=== PATIENT | male | born 1950 | race Caucasian/White ===

== ENCOUNTER → 2021-08-17 13:27 | Outpatient (BNVA) | payer OTHER, SELFPAY | PROVIDERS: Family Provider Internal Medicine; PCP Internal Medicine; Referring Provider Thoracic Surgery (Cardiothoracic Vascular Surgery); Visit Provider Orthopaedic Surgery | DX: M54.9 Dorsalgia, unspecified (principal); M48.062 Spinal stenosis, lumbar region with neurogenic claudication | CPT/HCPCS: 72110 ==

== ENCOUNTER → 2021-08-23 08:18 | Outpatient (BNVA) | payer OTHER, SELFPAY | PROVIDERS: Family Provider Internal Medicine; PCP Internal Medicine; Visit Provider Orthopaedic Surgery | DX: Z01.812 Encounter for preprocedural laboratory examination (principal); Z20.822 Contact with and (suspected) exposure to COVID-19 | CPT/HCPCS: 87635 ==

== ENCOUNTER → 2021-08-24 11:25 | Day surgery (SDC) | payer OTHER, SELFPAY | PROVIDERS: PCP Family Medicine; Visit Provider Orthopaedic Surgery | DX: Z01.818 Encounter for other preprocedural examination (principal); M48.062 Spinal stenosis, lumbar region with neurogenic claudication | CPT/HCPCS: 93005 ==

== ENCOUNTER 2021-08-30 08:03 | Day surgery (SDC) | payer OTHER, SELFPAY ==
--- NOTE | 2021-08-24 11:25 | ECG_ITS ---
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 Measurements Intervals [place] Rate: 51 P: OK: QRS: 47 QRSD: 94 T: 60 QT: 402 QTc: 371 Interpretive Statements ATRIAL FIBRILLATION WITH SLOW VENTRICULAR RESPONSE ABNORMAL RHYTHM ECG No previous ECG available for comparison Electronically Signed On 08-26-2021 7:49:33 CORRECTIONAL CASE RECORDS SUPERVISOR by Abdiaziz La M.D. [email or web address] Companiesgreenwood leflore hospitalPanda Securitymount st. mary hospital.[employer]/store/OM/[id number]
[2021-08-24 11:47] VITALS: BMI 24.3
--- NOTE | 2021-08-24 19:51 | ANES.PREANE2 ---
Pre-Anesthetic Assessment Pre-Anesthetic Assessment: Height/Weight: Height 1.7 m Weight 70.307 kg Preop Diagnosis: Lumbar stenosis Proposed Procedure: Operation Date: 08/30/21 12:45 Proposed Procedures p Lumbar Spine Decompression L4/5 59479 M48.062(Not Applicable) - Jose Maxwell, DO Was Beta Ej taken within 24 hours: N/A Was Clonidine taken within 24 hours: N/A Social: Social History: Tobacco and No alcohol Exam: Pre-Anes Outpt Exam: alert, oriented x 3, clear to auscultation bilaterally and regular rate & rhythm Airway: Submandibular: WNL Cervical ROM: WNL MP: 2 Dentition: False Pulmonary: Pulmonary: None reported CV/HEM: CV/HEM: HTN : : None reported Hepatic: Hepatic: None reported GI: GI: GERD Metabolic: Metabolic: Hyperlipidemia Musc/skel: Musc/skel: Lower Back Pain, OA/DJD and Weakness Neuropsych: Neuropsych: None reported Anesthetic Plan: ASA status: 2 PFSH Anesthesia PFSH: Social History Smoking and tobacco status: former smoker Data Anesthesia Cardiac Studies: No Data to Display
[2021-08-30] VITALS (14 sets, daily range): BP systolic 115–139; BP diastolic 60–89; PULSE 57–72; RESP 15–29; TEMP 36.2–36.5; O2SAT 94–100
--- NOTE | 2021-08-30 | SCC_ITS ---
Procedure: 1. Bilateral L4/5 laminectomy with partial facetectomies 12.0 seconds of fluoroscopic guidance, for a cumulative dose of 4.04 mGy, was provided to Dr. Maxwell by the radiology department. C-arm images of the lumbar spine were saved for the patient's permanent record. [facility]
--- NOTE | 2021-08-30 | XR_ITS ---
WS: [id number] XR lumbar spine 1V 64521 REASON FOR EXAM: OR PICS FINDINGS: PA view in surgery demonstrates surgical instrument overlying the left aspect of the L4-L5 disc space . XR/XR lumbar spine 1V 94837 IMPRESSION: Intraoperative lumbar spine localization as above.
[2021-08-30] MEDS: sodium chloride 0.9% 1,000 ML 30 ML IV (08:52)
--- NOTE | 2021-08-30 08:57 | P.ANESUD_ITS ---
Pre-Anesthetic Update Pre-Anesthetic Assessment: Date of Surgery/Procedure: 08/30/21 Preop Chantal gnosis: Lumbar stenosis Proposed Procedure: Operation Date: 08/30/21 09:45 Proposed Procedures p Lumbar Spine Decompression L4/5 84172 M48.062(Not Applicable) - Jose Maxwell, DO Any changes to Pre-Anesthetic Assessment?: No Last Intake: Intake Last Liquid Date 08/29/21 Last Liquid Time 20:00 Last Solid Date 08/29/21 Last Solid Time 16:00 Vitals: Temperature 97.2 F L 08/30/21 08:53 Temperature Source Temporal Artery S can 08/30/21 08:53 Pulse Rate 61 08/30/21 08:53 Respiratory Rate 18 08/30/21 08:53 Blood Pressure 139/78 08/30/21 08:53 Blood Pressure Eleni n 98 08/30/21 08:53 Pulse Oximetry 100 08/30/21 08:53 Oxygen Delivery Me thod 08/30/21 08:53 Exam: Pre-Anes Outpt Exam: alert, oriented x 3, clear to auscultation bilaterally and regular rate & rhythm Cardiac Studies: No Data to Display
--- NOTE | 2021-08-30 10:48 | PM.OP ---
Operative Report Date of procedure: August 30, 2021 Pre-op Diagnosis: Lumbar stenosis with neurogenic claudication Post-op diagnosis: same Post-op Findings: 1. Bilateral L4/5 laminectomy with partial facetectomies Surgeon: Jose Maxwell [employer] Artistic Director: Oracio [employer]anda [employer] Artistic Director: The surgical supplies sterilizer, Oracio Aranda, ROSA ELENA was needed for his expertise under the microscope. He was important and necessary throughout the procedure to complete in a safe and timely manner. He assisted with patient positioning prepping and draping tissue retraction suctioning of the operative field protection of the dural sac and tissue closure Anesthesia: General Estimated blood loss (mL): 5 Condition: stable Disposition: PACU Procedure: 1. Bilateral L4/5 laminectomy with partial facetectomies Patient is brought to the operative suite. After undergoing anesthesia they are placed in the prone position. All areas of impingement are well padded. Patient is then prepped and draped in the normal sterile fashion. A skin incision is made over the L4/5 level. This is confirmed under c-arm guidance. A series of dilators are passed and the tubular retractor is docked on the L4 lamina. A bovie is used to clear the soft tissue off the lamina and the L 4/5 facet joint. A high speed freya is then used to perform the laminectomy and take down the medial aspect of the L 4/5 facet joint. A kerrison rongeure was then used to take down the remaining lamina and smooth the edged of the laminectomy up to the point where the ligamentum flavum attaches. Attention was then brought to the medial aspect of the facet joint. The remaining medial aspect of the superior and inferior aspect of the facet joint were taken down with the kerrison from the pedicle of L4 to L 5. The facet joint had significant hypertrophy. Attention was then brought to the Ligamentum Flavum. The ligament was taken down from the lamina of L4 to L5 and out medially to the remaining facet joint. The ligament was thick and calcified. The dura was then exposed. The dura was in good repair. The L4 nerve was then traced with a curette out the L4/5 foramen and found to be adequately decompressed. The L5 nerve was traced with a curette around the L5 pedicle. The lateral recess was opened with a kerrison helping to further decompress the L5 nerve. The tubular retractor was then tilted to the contralateral side. The bovie was used to take down the soft tissue on the spinous process. The high speed freya was used to take down the spinous process and then the contralateral lamina of L4. The kerrison rongeur was used to take down the remaining lamina to the point where the ligamentum flavum attached and the ligamentum flavum was taken down from L4 to L5. The kerrison rongeur was then used to reach across and take down the medial aspect of the contralateral L4/5 facet joint.The currete was used to trace the contralateral L4 nerve out the L4/5 foramen to make sure it was decompressed adequatesly and the L5 was traced around the L5 pedicle. The lateral recess was opened further with the kerrison to ensure the L5 is adequately decompressed. Wound is then irrigated copiously with saline and surgiflo is used to stop any bleeding. The tubular retractor is removed and the wound is closed with vicryl and monocryl suture. Glue is then used to protect the wound. A sterile dressing is then placed. Patient was then placed in the supine position and transferred to the PACU in stable condition.
[2021-08-30] MEDS: fentaNYL 50 mcg/mL INJ 2mL IVP (11:08)
[2021-08-30] MEDS: HYDROcodone-acetaminophen 5-325 mg Tablet 1 TAB PO (11:45)
--- NOTE | 2021-08-30 14:18 | ANE.PACU2 ---
Inpatient post-anesthesia follow up: Airway intact: Yes Vital signs: Temperature 97.5 F Pulse Rate 57 Respiratory Rate 18 Blood Pressure 127/82 Pulse Oximetry 100 Oxygen Delivery Me thod Room Air Oxygen Flow Rate 4 Fraction of Inspir ed Oxygen Hydration adequate: Yes Nausea and vomiting: No Pain level: 2 Mental status: Baseline
--- NOTE | 2021-08-31 13:49 | W.PM.OPSUD ---
Surgery/Procedure H&P Update DATE OF PROCEDURE: August 31, 2021 DATE H&P PERFORMED: 08/17/21 H&P UPDATE INFORMATION: I have reviewed H&P completed within last 30 days, I have examined patient prior to procedure and Changes to prior documentation as noted here PREOP DIAGNOSIS: Lumbar stenosis with neurogenic claudication PLANNED PROCEDURE: Operation Date: 08/30/21 09:45 Proposed Procedures p Lumbar Spine Decompression L4/5 87091 M48.062(Not Applicable) - Jose Maxwell DO
== END 2021-08-30 12:21 | disposition home or self-care (01) ==
PROVIDERS: PCP Family Medicine; Visit Provider Orthopaedic Surgery
PROC: (CPT 63005; principal; 2021-08-30 09:35)
DX: M48.062 Spinal stenosis, lumbar region with neurogenic claudication (principal); I10 Essential (primary) hypertension; K21.9 Gastro-esophageal reflux disease without esophagitis; E78.5 Hyperlipidemia, unspecified; Z87.891 Personal history of nicotine dependence
CPT/HCPCS: 63047; 72020; 76000; J1100; J2405; J2704; J2710; J3010; J3490; J7030

== ENCOUNTER → 2022-01-11 13:41 | Outpatient (BNVA) | payer OTHER, SELFPAY | PROVIDERS: PCP Family Medicine; Visit Provider Physician Assistant | DX: Z47.89 Encounter for other orthopedic aftercare (principal); Z98.890 Other specified postprocedural states; M51.37 Other intervertebral disc degeneration, lumbosacral region; M47.816 Spondylosis without myelopathy or radiculopathy, lumbar region | CPT/HCPCS: 72100; 99214; 99999 ==

== ENCOUNTER 2022-01-25 06:00 | Outpatient (RCR) | payer OTHER, SELFPAY | END 2022-02-13 23:59 | disposition home or self-care (01) | LOC: TPT 06:00 | PROVIDERS: PCP Family Medicine; Referring Provider Family Medicine; Visit Provider Family Medicine | DX: Z47.89 Encounter for other orthopedic aftercare (principal) | CPT/HCPCS: 97110; 97162 ==

== ENCOUNTER → 2022-02-08 10:01 | Outpatient (BNVA) | payer OTHER, SELFPAY | PROVIDERS: PCP Family Medicine; Visit Provider Physician Assistant | DX: M51.37 Other intervertebral disc degeneration, lumbosacral region (principal); M47.816 Spondylosis without myelopathy or radiculopathy, lumbar region; Z98.890 Other specified postprocedural states | CPT/HCPCS: 99213 ==

== ENCOUNTER 2022-02-08 11:56 | Outpatient (CLI) | payer OTHER, SELFPAY | END 2022-02-08 11:57 | disposition home or self-care (01) | LOC: SPT 11:56 | PROVIDERS: PCP Family Medicine; Visit Provider Physician Assistant | DX: Z46.89 Encounter for fitting and adjustment of other specified devices (principal); Z98.890 Other specified postprocedural states; M51.37 Other intervertebral disc degeneration, lumbosacral region; M47.816 Spondylosis without myelopathy or radiculopathy, lumbar region | CPT/HCPCS: 97760; L0637 ==

== ENCOUNTER 2022-02-14 06:00 | Outpatient (RCR) | payer OTHER, SELFPAY | END 2022-03-15 23:59 | disposition home or self-care (01) | LOC: TPT 06:00 | PROVIDERS: PCP Family Medicine; Referring Provider Family Medicine; Visit Provider Family Medicine | DX: Z47.89 Encounter for other orthopedic aftercare (principal); Z98.890 Other specified postprocedural states; M51.37 Other intervertebral disc degeneration, lumbosacral region; M47.816 Spondylosis without myelopathy or radiculopathy, lumbar region | CPT/HCPCS: 97110 ==

== ENCOUNTER 2022-03-16 06:00 | Outpatient (RCR) | payer OTHER, SELFPAY | END 2022-04-15 23:59 | disposition home or self-care (01) | LOC: TPT 06:00 | PROVIDERS: PCP Family Medicine; Referring Provider Family Medicine; Visit Provider Family Medicine | DX: Z47.89 Encounter for other orthopedic aftercare (principal); Z98.890 Other specified postprocedural states | CPT/HCPCS: 97110 ==

== ENCOUNTER → 2022-05-31 15:30 | Outpatient (BNVA) | payer OTHER, MEDICARE, SELFPAY | PROVIDERS: PCP Family Medicine; Visit Provider Orthopaedic Surgery | DX: M47.816 Spondylosis without myelopathy or radiculopathy, lumbar region (principal); Z98.890 Other specified postprocedural states | CPT/HCPCS: 72110; 99214 ==

== ENCOUNTER 2022-06-21 15:46 | Outpatient (CLI) | payer OTHER, SELFPAY ==
--- NOTE | 2022-06-21 16:15 | MR_ITS ---
WS: [id number] MRI LUMBAR SPINE NONCONTRAST HISTORY: Low back pain rating into RIGHT leg., Prior laminectomy August 2021. COMPARISON: 07/18/2021 TECHNIQUE: Sagittal and axial multisequence imaging is submitted. Mild narrowing of the cervical canal by disc and osteophyte disease. Straightening of the normal lumbar lordosis. L2 retrolisthesis by 4 mm. There is a small amount of ma rrow edema along the inferior endplate of L5. Fatty marrow replacement of L3, L4 and L5. Severe disc space narrowing at L4-5 and to a lesser extent at L3-4 and L5-S1. Conus terminates normally at L1-2 disc level. L1-L2: Annular disc bulge. Mild encroachment upon the ventral thecal sac but no high-grade stenosis. L2-L3: Diffuse osteophytic ridging and annular disc bulging. Bilateral foraminal disc protrusions wit h annular fissures. I suspect there probably is also a small central disc protrusion. Facet joint art hritis. Combination of findings causing moderate central, bilateral subarticular recess and foraminal stenosis. Slightly greater foraminal stenosis involving the RIGHT foramen. There is significant cont act on the traversing L3 nerve roots. L3-L4: Diffuse osteophytic ridging and annular disc bulging. Ligamentum flavum and facet arthritis co ntributing to stenosis. Bilateral foraminal disc protrusions, RIGHT greater than LEFT. Moderate to se caroline central, bilateral subarticular recess stenosis with moderate foraminal stenosis. L4-L5: Diffuse osteophytic ridging with facet and ligamentum flavum arthritis. Mild central, subartic ular recess and foraminal stenosis predominantly due to osteophytes. LEFT hemilaminectomy defect. L5-S1: Mild asymmetric disc bulging. RIGHT paracentral broad-based disc protrusion. Complete effaceme nt of fat in the foramina secondary to combination of disc, osteophyte and facet disease. Severe bila teral foraminal stenosis. Signal of decreased intensity in the RIGHT foramen is suspicious for disc f ragment or at least a disc protrusion. Does not appear to have been present on the prior MRI of 2020. MR/MR lumbar spine wo con* [id number] IMPRESSION: 1. Severe bilateral foraminal stenosis at L5-S1. Suspect a disc fragment or di sc protrusion in the RIGHT foramen with significant contact on the exiting RIGH T L5 nerve root. New since 07/18/2021. 2. Multilevel advanced chronic lumbar spondylitic changes at all levels. 3. Moderate to severe central, bilateral subarticular recess and moderate fora stephanie stenosis at L3-4. 4. Moderate central, bilateral subarticular recess and foraminal stenosis at L 2-3. Greater foraminal stenosis on the RIGHT. 5. LEFT hemilaminectomy defect at L4-5.
== END 2022-06-21 15:47 | disposition home or self-care (01) ==
LOC: RAD 15:47
PROVIDERS: PCP Family Medicine; Visit Provider Orthopaedic Surgery
DX: M47.816 Spondylosis without myelopathy or radiculopathy, lumbar region (principal); Z98.890 Other specified postprocedural states; M48.07 Spinal stenosis, lumbosacral region; M48.061 Spinal stenosis, lumbar region without neurogenic claudication; M96.1 Postlaminectomy syndrome, not elsewhere classified
CPT/HCPCS: 72148

== ENCOUNTER → 2022-06-26 07:44 | Outpatient (BNVA) | payer OTHER, SELFPAY | PROVIDERS: PCP Family Medicine; Visit Provider Orthopaedic Surgery | DX: M48.062 Spinal stenosis, lumbar region with neurogenic claudication (principal) | CPT/HCPCS: 99214 ==

== ENCOUNTER 2022-07-31 06:40 | Outpatient (CLI) | payer OTHER, SELFPAY | END 2022-07-31 06:41 | disposition home or self-care (01) | LOC: RT 09-24 06:44 | PROVIDERS: PCP Family Medicine; Visit Provider Orthopaedic Surgery | DX: Z13.6 Encounter for screening for cardiovascular disorders (principal) | CPT/HCPCS: 93005 ==

== ENCOUNTER 2022-08-06 15:03 | Inpatient (IN) | payer OTHER, SELFPAY ==
[2022-07-31 09:58] VITALS: BMI 24.3
--- NOTE | 2022-07-31 10:01 | ECG_ITS ---
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/store/[id number]
--- NOTE | 2022-07-31 10:12 | ANES.PREANE2 ---
Pre-Anesthetic Assessment Height/Weight: Height 1.7 m Weight 70.307 kg Preop Diagnosis: Lumbar stenosis with neurogenic claudication Operation Date: 08/06/22 09:30 Proposed Procedures p Spinal Fusion L2-PELVIS [id number]/M48.062(Not Applicable) - Jose Maxwell, DO s Lumbar Spine Decompression L3/4 L4/5 L5/S1(Not Applicable) - Jose Maxwell, DO s Posterior Lumbar Interbody Fusion L5/S1(Not Applicable) - Jose Maxwell, DO Familial anesthetic complications: Postop MSK weakness - couldn't get air in or out? Describes feeling like his throat collapsed This occurred with surgery last august, but there's no indication of troubles in the record States he eventually started taking shallow breaths and it improved Social No alcohol and No tobacco Exam alert, oriented x 3, clear to auscultation bilaterally and regular rate & rhythm Airway Mallampati: Class II Dentition: full Pulmonary Chronic Obstructive Pulmonary Disease CV/HEM Hypertension GI Gastroesophageal Reflux Disease Metabolic Hyperlipidemia Musc/skel Lower Back Pain Neuropsych None reported Anesthetic Plan ASA status: 3 Anesthesia: General Risk of > 500 ml blood loss (7ml/kg in children): No Medications/Allergies Home Medications Medication Instructions Recorded Confirmed Last Taken Type pantoprazole 40 mg tablet,delayed 40 mg PO DAILY 08/17/21 07/31/22 07/31/22 History release pravastatin 40 mg tablet 40 mg PO DAILY 08/17/21 07/31/22 07/31/22 History prednisolone acetate 1 % eye 1 drp ophthalmic (eye) DAILY 08/17/21 07/31/22 07/31/22 History drops,suspension LSO #1 ea 02/08/22 06/26/22 Unknown Rx Intraoperative Neuromonitoring #1 ea 07/25/22 Unknown Rx Bone Growth Stimulator E0748 #1 ea 07/27/22 Unknown Rx albuterol sulfate 90 mcg/actuation 1 inh inhalation QID PRN Shortness 07/31/22 07/31/22 07/31/22 History aerosol inhaler (ProAir HFA) Of Breath Or Wheezing allopurinol 100 mg tablet 100 mg PO DAILY 07/31/22 07/31/22 07/31/22 History (Zyloprim) diltiazem HCl 240 mg capsule,24 240 mg PO DAILY 07/31/22 07/31/22 07/31/22 History hr,extended release tiotropium 2.5 mcg-olodaterol 2.5 2 puff inhalation DAILY 07/31/22 07/31/22 07/31/22 History mcg/actuation mist for inhalation (Stiolto Respimat) Allergies Allergy/AdvReac Type Severity Reaction Status Date / Time No Known Allergies Allergy Verified 07/31/22 09:47 [facility] Anesthesia Social History Smoking and tobacco status: former smoker (2 years ) Data Anesthesia Cardiac Studies: No Data to Display
[2022-08-06] VITALS (20 sets, daily range): BP systolic 102–153; BP diastolic 57–113; PULSE 65–96; RESP 12–22; TEMP 36.1–36.7; O2SAT 93–98; BMI 26.6
--- NOTE | 2022-08-06 | XR_ITS ---
WS: [id number] INTRAOPERATIVE TECHNIQUE: 4 Spot fluoroscopic images for intraoperative purposes. FLUOROSCOPY TIME: 16 seconds CLINICAL INFORMATION: L2 to pelvis fusion. or pic COMPARISON: None. FINDINGS: Pedicle screw fixation with interconnecting rodsat L2-S1. Interconnecting rods appear intact. Hardwar e appears in good position. Bilateral sacroiliac fixation screws. Interbody disc space graft anterior L5-S1. XR/XR lumbar spine 2-3V* 56000 IMPRESSION: Images obtained for intraoperative purposes.
--- NOTE | 2022-08-06 | SCC_ITS ---
Procedure done: 1. L5/S1 Interbody fusion with posterolateral fusion 2. Instrumentation L2-S1 3. Lumbopelvic fixation 4. Cage at L5/S1 5. Open SI joint fusion on the Right 6. Open SI joint fusion on the left 7. L2/3 Laminectomy with partial facetectomies 8. L3/4 Laminectomy with partial facetectomies 9. L4/5 Laminectomy with partial facetectomies 10. L5/S1 Laminectomy with partial facetectomies 11. Use of autograft from same incision 12. Allograft 13. Bone marrow aspirate from right iiac crest 14. Use of computer navigation stereotactic for the spine 16 seconds of fluoroscopic guidance, for a cumulative dose of 26.8 mGy, was provided to Dr. Maxwell by the radiology department. C-arm images of the lumbar spine were saved for the patient's permanent record. [facility]
[2022-08-06] MEDS: sodium chloride 0.9% 1,000 ML 30 ML IV (08:25)
--- NOTE | 2022-08-06 10:03 | P.ANESUD_ITS ---
Pre-Anesthetic Update Pre-Anesthetic Assessment: Date of Surgery/Procedure: 08/06/22 Preop Chantal gnosis: Lumbar stenosis with neurogenic claudication, degenerative disc disease Proposed Procedure: Operation Date: 08/06/22 09:30 Proposed Procedures p Spinal Fusion L2-PELVIS [id number]/M48.062(Not Applicable) - Jsoeaugusto Bettencourt Caron, DO s Lumbar Spine Decompression L3/4 L4/5 L5/S1(Not Applicable) - Jose H Alissa, DO s Posterior Lumbar Interbody Fusion L5/S1(Not Applicable) - Joseaugusto Bettencourt Caron, DO Any changes to Pre-Anesthetic Assessment?: No Last Intake: Intake Last Liquid Date 08/05/22 Last Liquid Time 21:00 Last Solid Date 08/05/22 Last Solid Time 21:00 Vitals: Temperature 97.0 F L 08/06/22 08:26 Temperature Source Temporal Artery S can 08/06/22 08:26 Pulse Rate 65 08/06/22 08:26 Respiratory Rate 18 08/06/22 08:26 Blood Pressure 153/113 08/06/22 08:26 Blood Pressure Eleni n 126 08/06/22 08:26 Pulse Oximetry 98 08/06/22 08:26 Oxygen Delivery Me thod 08/06/22 08:27 Exam: Pre-Anes Outpt Exam: alert, oriented x 3, clear to auscultation bilaterally and regular rate & rhythm Additional Exam Findings (including area of procedure): Plan GETA with a.line and transfusion possible. Cardiac Studies: No Data to Display
--- NOTE | 2022-08-06 10:06 | PM.HP ---
Providers/Chief Complaint Primary Care Provider: Carie Jennings MD Chief Complaint: PSF/DECOMPRESSION/PLIF History of Present Illness Jose Ovalles is a 71 year old male He rates his pain 5/10 today with pain to his right lower back that travels into his posterior right leg and does not travel below his knee. He describes pain to his low back that keeps him awake at night. He was recenlty?He does have a history of bilateral? L4/5 laminectomy with partial facetectomies. DOS: 08/30/21. Review of Systems Const: Denies: fever(s) or chills Card: Denies: chest pain or dyspnea on exertion Resp: Denies: dyspnea or productive cough GI: Denies: abdominal pain, nausea or vomiting Musc: Reports: back pain and extremity pain; Denies: limited range of motion Skin/Breast: Denies: changes in skin color or dry skin Neuro: Denies: numbness in extremities or weakness in extremities Psych: Denies: anxiety Lazaro/Lymph: Denies: easy bruising or easy bleeding Medications/Allergies Home Medications Medication Instructions Recorded Confirmed Last Taken Type pantoprazole 40 mg tablet,delayed 40 mg PO DAILY 08/17/21 07/31/22 08/05/22 History release pravastatin 40 mg tablet 40 mg PO DAILY 08/17/21 07/31/22 08/05/22 History prednisolone acetate 1 % eye 1 drp ophthalmic (eye) DAILY 08/17/21 07/31/22 08/05/22 History drops,suspension LSO #1 ea 02/08/22 06/26/22 Unknown Rx Intraoperative Neuromonitoring #1 ea 07/25/22 Unknown Rx Bone Growth Stimulator E0748 #1 ea 07/27/22 Unknown Rx albuterol sulfate 90 mcg/actuation 1 inh inhalation QID PRN Shortness 07/31/22 07/31/22 08/05/22 History aerosol inhaler (ProAir HFA) Of Breath Or Wheezing allopurinol 100 mg tablet 100 mg PO DAILY 07/31/22 07/31/22 08/05/22 History (Zyloprim) diltiazem HCl 240 mg capsule,24 240 mg PO DAILY 07/31/22 07/31/22 08/05/22 History hr,extended release tiotropium 2.5 mcg-olodaterol 2.5 2 puff inhalation DAILY 07/31/22 07/31/22 08/06/22 06:30 History mcg/actuation mist for inhalation (Stiolto Respimat) Allergies Allergy/AdvReac Type Severity Reaction Status Date / Time No Known Allergies Allergy Verified 07/31/22 09:47 PFSH Acute PFSH: Social History Smoking and tobacco status: former smoker (2 years ) Vitals/I&O/Wt Last Vital Signs Temp 97.0 F L 08/06/22 08:26 Pulse 65 08/06/22 08:26 Resp 18 08/06/22 08:26 BP 153/113 08/06/22 08:26 Pulse Ox 98 08/06/22 08:26 O2 Del Method 08/06/22 08:27 Physical Exam Narrative: CONSTITUTIONAL: The patient is a normal appearing [] in no apparent distress. GENERAL: Patient in no acute distress. CARDIAC: Regular rate and rhythm. CHEST: Normal inspiratory effort, normal respiratory rate. ABDOMEN: Soft and nontender. SKIN: Clear, warm and intact. NEURO?PSYCH: The patient is alert and oriented to person, place and time. Sensorv /SILT Motor StrengthShoulder abduction C5 5/5Wrist extension C6 5/5Elbow extension C7 5/5Hand Java Project Manager C8 5/5Finger abduction T15/5 Radial/ Ulnar/ Median n intact LowerSensory (SILT)Motor StrengthHin flexion L2/3Ant/inner thigh 5/5Hip adduction L2/3 5/5Knee extension L4 Lat thigh, 5/5Toe dorsiflexion L5 5/5Ankle dorsiflexion L5/ L79Hfmvpoj flexion S1 5/5 DTRBleeps 2+Triceps 2+Brachioradialis 2+Patellar 2+Achilles 2+ MUSCULOSKELETAL: [] UPPEREXTREMITIES: The patient had full active ROM in fingers, wrist, elbow, and shoulder. The patient demonstrated ability to fully flex/extend/abduct/adduct fingers, make ok sign, cross 2nd/3rd digits, extend 1st digit fully.. Radial pulse 2+, CR<2 seconds. LOWER EXTREMITIES: Pt has full, active ROM of toes, ankle, knee, and hip. Dorsalis pedis/posterior tibialis pulses 2+, CR<2 seconds. SPINE: Skin warm, dry, intact. A&P Assessment and plan (1) Lumbar stenosis with neurogenic claudication: L2 to pelvis fusion Attestations Medical Necessity Statement*: failed conservative tx Coding Level of Care Code Acute Branch Billing Payroll Clerk for g Fwd Diagnoses Lumbar stenosis with neurogenic claudication M48.062
[2022-08-06] MEDS: ceFAZolin 2,000 MG in sodium chloride 0.9% (plus) 50 ML 100 MG IV ×2 (10:31→17:53)
--- NOTE | 2022-08-06 11:47 | SUR.OPER ---
notified of surgical progress
[2022-08-06] MEDS: heparin, porcine 1,000 unit/mL INJ 10 mL 10000 UNIT IRRIGATION (12:02)
[2022-08-06] MEDS: vancomycin 1,000 MG SDV 1000 MG XX (12:03)
[2022-08-06] MEDS: fentaNYL 50 mcg/mL INJ 2mL IVP (15:33)
--- NOTE | 2022-08-06 15:41 | P.OP_ITS ---
Operative Report Date of procedure: August 06, 2022 Pre-op diagnosis: Preop Diagnosis Lumbar stenosis with neurogenic claudication, degenerative disc disease Post-op diagnosis: same Procedure done: 1. L5/S1 Interbody fusion with posterolateral fusion 2. Instrumentation L2-S1 3. Lumbopelvic fixation 4. Cage at L5/S1 5. Open SI joint fusion on the Right 6. Open SI joint fusion on the left 7. L2/3 Laminectomy with partial facetectomies 8. L3/4 Laminectomy with partial facetectomies 9. L4/5 Laminectomy with partial facetectomies 10. L5/S1 Laminectomy with partial facetectomies 11. Use of autograft from same incision 12. Allograft 13. Bone marrow aspirate from right iiac crest 14. Use of computer navigation stereotactic for the spine Surgeon: Jose Maxwell Client Sales And Service Officer: Oracio Aranda Client Sales And Service Officer: The entry level marketing assistant, Oracio Aranda, PAC was needed for his expertise under the microscope. He was important and necessary throughout the procedure to complete in a safe and timely manner. He assisted with patient positioning prepping and draping tissue retraction suctioning of the operative field protection of the dural sac and tissue closure Estimated blood loss (mL): 400 Procedure: 1. L5/S1 Interbody fusion with posterolateral fusion 2. Instrumentation L2-S1 3. Lumbopelvic fixation 4. Cage at L5/S1 5. Open SI joint fusion on the Right 6. Open SI joint fusion on the left 7. L2/3 Laminectomy with partial facetectomies 8. L3/4 Laminectomy with partial facetectomies 9. L4/5 Laminectomy with partial facetectomies 10. L5/S1 Laminectomy with partial facetectomies 11. Use of autograft from same incision 12. Allograft 13. Bone marrow aspirate from right iiac crest 14. Use of computer navigation stereotactic for the spine Patient is brought to the operative suite.? After undergoing anesthesia, the patient had neuro monitoring attached.? Patient was then placed in the prone position on the [place] table.? All areas of impingement were well-padded.? Patient was then prepped and draped in the normal sterile fashion.? Skin incision was then made over the L2 to S1.? Subperiosteal dissection was made out to the transverse processes of L2 down to L5.? And also exposing the sacral ala over the L5/S1 facet.? The SI joints were also exposed.? Next attention was brought to obtaining the bone marrow aspirate.? The [employer] bone marrow aspirate kit was used to aspirate bone marrow aspirate.? This was done by using the sharp probe to open up the bone.? Aspiration was performed and then the blunt probe was then used to dissect down to through the bone tunnel.? An aspirating well drawn back a millimeter approximately 20 cc of bone marrow aspirate was used.? Admixed with the allograft and autograft bone that will be used. Is brought to placing the fiducial for the computer navigation.? The computer navigation fiducial was hooked up to 2 pins were placed into the right iliac crest.? These 2 pins were later moved at the end of the case.? The C-arm was brought in and spun around the patient and then the information was linked to the computer in order to facilitate placing the screws. Next attention was brought to placing the sacral ala iliac screws.? These were done bilaterally.? The right side was done first.? The gearshift was placed using computer navigation.? And then the pedicle feeler was inserted in order to facilitate that there were no breaches.? This was also placed in order to facilitate marking where the screw was going to go.? Because Next the attention was brought to placing the open sacral iliac joint fusion.? The exposure was done over the sacroiliac joint.? Using the gearshift probe the SI joint was identified and a K wire was placed into the sacroiliac joint.? Tissue protectors were passed around the sacroiliac joint pain and then a drill was placed into the sacroiliac joint going in the parallel fashion into the SI joint.? Next a allograft cage was placed into the SI joint.? This was done superior to the plan.? The same process was repeated inferior to the pin.? Next attention was placed to placing the right sacral ala iliac screw using computer navigation this is a 90 mm 9.5 mm Franko screw. Next attention was brought to the left side.he gearshift was placed using computer navigation.? And then the pedicle feeler was inserted in order to facilitate that there were no breaches.? This was also placed in order to facilitate marking where the screw was going to go.? Because Next the attention was brought to placing the open sacral iliac joint fusion.? The exposure was done over the sacroiliac joint.? Using the gearshift probe the SI joint was identified and a K wire was placed into the sacroiliac joint.? Tissue protectors were passed around the sacroiliac joint pain and then a drill was placed into the sacroiliac joint going in the parallel fashion into the SI joint.? Next a allograft cage was placed into the SI joint.? This was done superior to the plan.? The same process was repeated inferior to the pin.? Next attention was placed to placing the right sacral ala iliac screw using computer navigation this is a 90 mm 9.5 mm Agency screw. A total of 4 cages were placed into the bilateral sacral iliac joints. Next attention was brought to placing the pedicle screws.? The technique for placing the pedicle screws was to use a drill followed by the gearshift probe.? Followed by the ball probe to feel the superior inferior medial lateral flores of the pedicles.? Then placement of the screws.? Was done at each pedicle.? Screws were placed at S1 bilaterally, L5 bilaterally L4 bilaterally L3 bilaterally and L2 Bilaterally.? Next attention was brought to performing the laminectomy ofL2.? This was done using the high-speed bur Kerrisons and curettes.? Once the lamina was removed and then attention was brought to performing a partial facetectomy on the contralateral side.? This was done again using the high-speed bur curettes and Kerrisons.? The ligamentum flavum was taken down bilaterally from L2 to L3.? Attention was then brought to the facet on the ipsilateral side.? The facet was taken down.? The L3 nerve was decompressed as it passed around the L3 pedicle bilateral.? The laminectomy was done for purposes of decompressing the nerve ? The L2 nerve was identified as it traversed through the L2/3 foramen bilateral.? Next attention was brought to performing the laminectomy ofL3.? This was done using the high-speed bur Kerrisons and curettes.? Once the lamina was removed and then attention was brought to performing a partial facetectomy on the contralateral side.? This was done again using the high-speed bur curettes and Kerrisons.? The ligamentum flavum was taken down bilaterally from L3 to L4.? Attention was then brought to the facet on the ipsilateral side.? The facet was taken down.? The L4 nerve was decompressed as it passed around the L4 pedicle bilateral.? The laminectomy was done for purposes of decompressing the nerve ? The L3 nerve was identified as it traversed through the L3/4 foramen bilateral.? Next attention was brought to performing the laminectomy ofL4.? This was done using the high-speed bur Kerrisons and curettes.? Once the lamina was removed and then attention was brought to performing a partial facetectomy on the contralateral side.? This was done again using the high-speed bur curettes and Kerrisons.? The ligamentum flavum was taken down bilaterally from L4 to L5.? Attention was then brought to the facet on the ipsilateral side.? The facet was taken down.? The L5 nerve was decompressed as it passed around the L5 pedicle bilateral.? The laminectomy was done for purposes of decompressing the nerve ? The L4 nerve was identified as it traversed through the L4/5 foramen bilateral. Next attention was brought to performing the laminectomy ofL5. This was done using the high-speed bur Kerrisons and curettes. Once the lamina was removed and then attention was brought to performing a partial facetectomy on the contralateral side. This was done again using the high-speed bur curettes and Kerrisons. The ligamentum flavum was taken down bilaterally from L5 to S1. Attention was then brought to the facet on the ipsilateral side. The facet was taken down. The S1 nerve was decompressed as it passed around the S1 pedicle. The laminectomy was done for purposes of decompressing the nerve as well as placement of the cage. The L5 nerve was identified as it traversed through the L5/S1 foramen. The thecal sac was identified and retracted. The L5/S1 disc base was identified. Using a knife the disc base was opened. And then sequential solomon were placed. The first shaver was a 6 and the last shaver was a 10. Using a pituitary and down going curette the endplates were scraped and disc material was removed from the space. Once adequate decompression of the disc base was felt to be had. Osteoamp sponge was packed into the anterior aspect of the disc base. Then a size 10 cage from [employer] was placed after packing osteoamp into the cage. While placing the cage the thecal sac and S1 nerve was protected. C arm was used to ensure that the cages placed in the appropriate position. Attention was then brought to attaching the rods to the screws placed in the L2, L3,L4,L5, S1 and Iliac screws bilaterally. Caps were torqued into position. Locking the construct in place. Wound was copiously irrigated and then attention was brought to decorticating the facets and transverse processes laterally. Bone that was taken down from the lamina was used along with osteoamp fibers and sponges were packed into the lateral gutters along the facet joints. This was done bilaterally. Wound was then closed in a layered fashion starting with the thoracolumbar fascia. 0-vicryl was used the sub cutaneous tissue was closed with 2-0 vicryl a nd skin with 4-0 monocryl. Glue was then used to seal the skin and a steril dressing was applied. Patient was then placed in the supine position. The endotracheal tube was removed and patient was transferred to the PACU in stable condition.
[2022-08-06] MEDS: HYDROmorphone 1 mg/mL INJ 1 mL 0.5 MG IVP ×2 (15:49→15:59)
--- NOTE | 2022-08-06 16:07 | ANE.PACU2 ---
Inpatient post-anesthesia follow up: Airway intact: Yes Vital signs: Temperature 97.1 F Pulse Rate 68 Respiratory Rate 18 Blood Pressure 108/91 Pulse Oximetry 97 Oxygen Delivery Me thod Room Air Oxygen Flow Rate 6 Fraction of Inspir ed Oxygen Hydration adequate: Yes Nausea and vomiting: No Pain level: 5 Mental status: Baseline
[2022-08-06] MEDS: HYDROcodone-acetaminophen 5-325 mg Tablet PO (17:06)
[2022-08-06] MEDS: docusate sodium 100 mg Capsule PO (17:06)
[2022-08-06] MEDS: lactated ringers 1,000 ML 90 ML IV (17:08)
[2022-08-06] MEDS: ketorolac 30 mg/mL INJ IVP (17:19)
[2022-08-06] MEDS: morphine 4 mg/mL SDV 1 mL 2 MG IVP (20:52)
[2022-08-07] VITALS (14 sets, daily range): BP systolic 103–130; BP diastolic 58–72; PULSE 73–120; RESP 16–18; TEMP 36.4–37; O2SAT 86–97
[2022-08-07] MEDS: ceFAZolin 2,000 MG in sodium chloride 0.9% (plus) 50 ML 100 MG IV ×2 (02:26→10:31)
[2022-08-07] MEDS: lactated ringers 1,000 ML 90 ML IV ×2 (05:34→16:48)
[2022-08-07] MEDS: HYDROcodone-acetaminophen 5-325 mg Tablet PO ×4 (05:34→14:26)
--- NOTE | 2022-08-07 07:31 | PM.PN ---
Subjective Subjective: POD 1 Patient resting comfortably mild back pain. Leg pain is changed. Denies any shortness of breath, chest pain, headaches. Vitals/I&O/Wt Last Vital Signs Temp 97.6 F 08/07/22 06:00 Pulse 75 08/07/22 06:00 Resp 17 08/07/22 06:00 BP 130/71 08/07/22 06:00 Pulse Ox 97 08/07/22 06:00 O2 Del Method 08/07/22 06:00 O2 Flow Rate 2 08/06/22 20:00 08/06/22 08/07/22 08/07/22 22:59 06:59 14:59 Intake Total 3040 / 3090 1530 / 4620 Output Total 1125 / 1125 1225 / 2350 Balance 1914 / 1964 305 / 2270 Weight last 48 hrs Weight 170 lb 1.6 oz Physical Exam Narrative: Patient presents alert and oriented x3 with a good general appearance normal mood and affect. Normal coordination normal stability. Mild tenderness around the incisional site with the incision appear to be clean and dry with Hemovac intact. No signs of erythema or drainage. No signs of infection. Patient denies any fevers or chills. 5/5 motor strength both lower extremities with negative straight leg raise bilaterally. Calves are supple no medial thigh tenderness. Pulses are 2+ at the dorsalis pedis and posterior tibial region. Good capillary refill throughout normal sensation light touch both lower extremities. Urinary Catheter Management: Finley: Cath Placed During This Visit: yes Reason for Continuing Indwelling Catheter: Required Immobilization for Trauma or Surgery or Anesthesia Urinary Catheter Date of Insertion: 08/06/22 Urinary Catheter Time of Insertion: 10:45 A&P Assessment and plan (1) S/P spinal fusion: We will discontinue Finley catheter. Physical therapy to mobilize in the halls. Encourage incentive spirometer for pulmonary toilet. Gain better pain control and hopeful discharge home tomorrow. Attestations Medical Necessity Statement*: DC home tomorrow Coding Level of Care Code Acute Glass Blower Helper for Daleg Fwd Diagnoses S/P spinal fusion Z98.1
[2022-08-07] MEDS: morphine 4 mg/mL SDV 1 mL 2 MG IVP ×2 (08:06→14:27)
[2022-08-07] MEDS: atorvastatin 40 mg Tablet 20 MG PO (08:06)
[2022-08-07] MEDS: dilTIAZem ER (24HR) 240 mg Capsule PO (08:06)
[2022-08-07] MEDS: pantoprazole DR 40 mg Tablet PO (08:07)
[2022-08-07] MEDS: allopurinol 100 mg Tablet PO (08:07)
--- NOTE | 2022-08-07 08:40 | PC.PHAR ---
pts is bringing in medication bottles
[2022-08-07] MEDS: docusate sodium 100 mg Capsule PO ×2 (08:53→18:06)
[2022-08-07] MEDS: prednisoLONE 1% Op Susp 5 mL Btl 1 DROP EYE-BOTH (08:53)
[2022-08-07] MEDS: ipratropium-albuterol 3 mL Neb INHALATION ×3 (09:05→16:48)
--- NOTE | 2022-08-07 11:35 | PC.CHAP ---
Pastoral Care Encounter/Spiritual Assessment Type of Contact [] Declined dressing room attendant visit [] Patient/Family/Request visit [] Outpatient visit [] Follow-up visit [] Physician referral [] Code/Alert [x] Routine visit [] Staff referral [] Actively dying [] Patient sleeping [] Family support [] [] Out of room [] Palliative care [] [] Receiving care in room [] Pre-surgical visit [] Trauma [] Long length of stay [] ICU visit [] Other: Relational/Emotional Strength [x] Patient feels connected with others/family/visitors/staff [] Distress [] Loneliness/isolation [] Abandonment Spirituality of Patient [x] Person of Samra [x] Attends Moravian of their [place] [x] Believes in Prayer x[] Reads Bible or Protestant materials [] There are Spiritual issues to be addressed School Speech Therapist Interventions [x] Prayer [x] Active listening [x] Non-anxious presence [] Spiritual/emotional support [] Crisis/trauma care x [] Spiritual counseling [] Bereavement support [] Provided bereavement packet [] Provided Bible/devotional materials [] Provided toy/stuffed animal, coloring book to patient or family member [] Provided Communion [] Anointing/[place] [] Salvation [] Completed spiritual assessment [] Other: Impact on Illness or Injury [] Angry [] Fearful [] Anxious [] Often cries [] Exhaustion [] Unable to work [] Unable to attend religious [] Unable to walk/stand [] Unable to read [] Unable to drive [] Unable to eat/drink [] Unable to sleep [] Unable to be with family [] Patient intubated [] Other: Summary Time spent with patient 15 min
[2022-08-07] MEDS: ketorolac 30 mg/mL INJ IVP (11:59)
[2022-08-07 17:38] LABS: Glucose Point of Care 133 mg/dL (70-110)
--- NOTE | 2022-08-07 17:52 | PC.NURSE ---
patient complained of headache. he stated that he never gets them. i got a set of vitals and reported to my charge nurse
--- NOTE | 2022-08-07 18:00 | PC.NURSE ---
GURINDER NELSON APPROACHED THIS NURSE AND STATED PATIENT HAD A RAGING HEADACHE. VITALS WERE STABLE. THIS NURSE ASSESSED PATIENT AND ASKED IF THE PATIENT WOULD LAY DOWN. PATIENT AGREED TO LAY FLAT AND STATED HIS HEADACHE WAS GONE. THIS NURSE CONTACTED DR. FERMIN AND DR. FERMIN GAVE INSTRUCTIONS TO KEEP PATIENT FLAT FOR A COUPLE OF HOURS AND THEN SLOWLY RAISE HIS HEAD AGAIN UNTIL HE COULD TOLERATE BEING UP.
[2022-08-08 03:11] VITALS: RESP 18
[2022-08-08] MEDS: morphine 4 mg/mL SDV 1 mL 2 MG IVP (03:11)
[2022-08-08] MEDS: HYDROcodone-acetaminophen 5-325 mg Tablet PO ×2 (03:11→06:46)
[2022-08-08] MEDS: lactated ringers 1,000 ML 90 ML IV (03:12)
[2022-08-08 03:17] VITALS: BP 125/74; PULSE 96; RESP 20; TEMP 37.1; O2SAT 92
--- NOTE | 2022-08-08 05:19 | PC.NURSE ---
Addendum entered by Crystal Crowder RN 08/08/22 06:33: Error. 8:30 pm, not 8:30 am Original Note: Per report from day shift RN, patient is to lay flat until 8:30 am.
--- NOTE | 2022-08-08 06:26 | PM.PN ---
Subjective Subjective: POD 2 Resting comfortably. Has some mild back pain states leg pain has improved significantly. Denies any chest pain, shortness of breath or headaches. Vitals/I&O/Wt Last Vital Signs Temp 98.7 F 08/08/22 03:17 Pulse 96 08/08/22 03:17 Resp 20 H 08/08/22 03:17 BP 125/74 08/08/22 03:17 Pulse Ox 92 08/08/22 03:17 O2 Del Method 08/08/22 03:17 O2 Flow Rate 1 08/07/22 18:00 08/07/22 08/07/22 08/08/22 14:59 22:59 06:59 Intake Total 770 / 770 124 / 2009 1236 / 3246 Output Total 500 / 500 825 / 1325 1250 / 2575 Balance 270 / 270 415 / 685 -14 / 671 Weight last 48 hrs Weight 170 lb 1.6 oz Physical Exam Narrative: Patient presents alert and oriented x3 with a good general appearance normal mood and affect. Normal coordination normal stability. Mild tenderness around the incisional site with the incision appear to be in and dry with Hemovac intact.. No signs of erythema or drainage. No signs of infection. Patient denies any fevers or chills. 5/5 motor strength both lower extremities with negative straight leg raise bilaterally. Calves are supple no medial thigh tenderness. Pulses are 2+ at the dorsalis pedis and posterior tibial region. Good capillary refill throughout normal sensation light touch both lower extremities. Urinary Catheter Management: Finley: Cath Placed During This Visit: yes, but has since been removed by the nurse Reason for Continuing Indwelling Catheter: Other Urinary Catheter Date of Insertion: 08/06/22 Urinary Catheter Time of Insertion: 10:45 Date Urinary Catheter Removed: 08/07/22 A&P Assessment and plan (1) S/P spinal fusion: Physical therapy to mobilize. We will discontinue Hemovac drain. Continue incentive spirometry for pulmonary toilet. Will discharge home later today. We will see him back in the office in 1 week's time for wound check. Attestations Medical Necessity Statement*: dc home today Coding Level of Care Code Established Pt Acute Tracing Lathe Set Up Operator for Chg Fwd Patient Type Established Diagnoses S/P spinal fusion Z98.1
--- NOTE | 2022-08-08 06:34 | PC.NURSE ---
KATIE Sesay rounded with patient. Patient okay'ed to ambulate. Stated hemovac to be removed today.
[2022-08-08] MEDS: ketorolac 30 mg/mL INJ IVP (06:45)
--- NOTE | 2022-08-08 06:49 | PC.NURSE ---
Patient laid flat in bed all night. Patient up to chair this AM and got a headache. Patient laid back down in bed and headache went away.
[2022-08-08 07:27] VITALS: BP 126/71; PULSE 77; RESP 14; TEMP 36.9; O2SAT 89
--- NOTE | 2022-08-08 07:27 | PC.NURSE ---
patient complaining of massive headache when he stands. laying down there is no headache. i reported this to the nurse.
[2022-08-08 07:42] LABS: Hematocrit 25.4 % (42.0-52.0); Hemoglobin 8.4 g/dL (11.7-16.6)
--- NOTE | 2022-08-08 07:48 | PC.NURSE ---
Addendum entered by Crystal Crowder RN 08/08/22 07:49: H&H ordered. Original Note: KATIE Sesay at bedside. Hemovac removed. Ordered to make patient NPO and d/c morphine. Ordered to put head of bed at 30 degrees and slowly increase as tolerated by patient.
[2022-08-08] MEDS: allopurinol 100 mg Tablet PO (09:01)
[2022-08-08] MEDS: atorvastatin 40 mg Tablet 20 MG PO (09:01)
[2022-08-08] MEDS: dilTIAZem ER (24HR) 240 mg Capsule PO (09:01)
[2022-08-08] MEDS: docusate sodium 100 mg Capsule PO (09:01)
[2022-08-08] MEDS: pantoprazole DR 40 mg Tablet PO (09:02)
[2022-08-08 11:14] VITALS: BP 124/75; PULSE 84; RESP 16; TEMP 36.5; O2SAT 94
[2022-08-08 13:05] VITALS: BP 124/75; PULSE 84; RESP 16; TEMP 36.5; O2SAT 94
--- NOTE | 2022-08-08 13:17 | PC.NURSE ---
0800 Silvalon 4x10 dressing applied to back incision. and4x4 covered with foam tape.original dressing removed per DR, patient tolerated well
--- NOTE | 2022-08-08 13:19 | PC.NURSE ---
1145 Discharge instructions given to patient and patientswife both voiced understanding.personal belongings packed up and with patient.
--- NOTE | 2022-08-13 19:41 | PM.DCS ---
Discharge Providers Date of Admission: 08/06/22 15:03 Date of Discharge: August 08, 2022 Attending Provider at Admission: Jose Maxwell DO Attending Provider at Discharge: Jose Maxwell DO Primary Care Provider: Carie Jennings MD Diagnoses at Discharge Discharge Diagnosis (1) S/P spinal fusion: Status: Acute Reason for Visit Reason for Visit: PSF/DECOMPRESSION/PLIF Hospital Course Hospital Course uneventful Physical Exam Urinary Catheter Management: Finley: Cath Placed During This Visit: yes, but has since been removed by the nurse Reason for Continuing Indwelling Catheter: Other Urinary Catheter Date of Insertion: 08/06/22 Urinary Catheter Time of Insertion: 10:45 Date Urinary Catheter Removed: 08/07/22 Discharge Data Studies Completed and Pending Completed Studies During Hospitalization Category Date Time Status XR lumbar spine 2-3V* [id number] Routine Exams 08/06/22 Completed Radiology Impressions Lumbar Spine X-Ray 08/06/22 00:00 IMPRESSION: Images obtained for intraoperative purposes. Laboratory Results Hgb 8.4 g/dL (11.7-16.6) L 08/08/22 07:35 Hct 25.4 % (42.0-52.0) L 08/08/22 07:35 POC Glucose 133 mg/dL (70-110) H 08/07/22 17:35 Vitals Last Vital Signs Temp 97.7 F 08/08/22 13:05 Pulse 84 08/08/22 13:05 Resp 16 08/08/22 13:05 BP 124/75 08/08/22 13:05 Pulse Ox 94 08/08/22 13:05 O2 Del Method 08/08/22 11:14 O2 Flow Rate 1 08/07/22 18:00 Discharge Plan Discharge Patient Disposition: Home Condition: Stable Prescriptions: New hydrocodone-acetaminophen 5-325 mg Tablet 1 - 2 tab PO Q4H PRN (Reason: Post op pain) Qty: 40 0RF Continued pantoprazole 40 mg tablet,delayed release (DR/EC) 40 mg PO BEDTIME pravastatin 40 mg tablet 20 mg PO BEDTIME prednisolone acetate 1 % drops,suspension See Rx Instructions .ROUTE .COMPLEX Rx Instructions: 1 drp into the left eye every am except on sat and sun (DME) LSO See Rx Instructions .Route .MEDSUPPLY Qty: 1 0RF Rx Instructions: As directed (DME) Intraoperative Neuromonitoring See Rx Instructions .Route .MEDSUPPLY Qty: 1 0RF Rx Instructions: As directed (DME) Bone Growth Stimulator E0748 See Rx Instructions .Route .MEDSUPPLY Qty: 1 0RF Rx Instructions: As directed diltiazem HCl 240 mg capsule,extended release 24 hr 240 mg PO QAM allopurinol [Zyloprim] 100 mg tablet 100 mg PO BID albuterol sulfate [ProAir HFA] 90 mcg/actuation Hfa Aerosol Inhaler 1 inh INHALATION QID PRN (Reason: Shortness Of Breath Or Wheezing) Stiolto Respimat 2.5-2.5 mcg/actuation Mist 2 puff INHALATION QAM Discharge Orders: Discharge Order (Routine); Ordered 08/08/22 Ordered By: Oracio Aranda Other Ambulatory Orders: DME: Per (Order) Location: None Selected Ordered By: Jose Maxwell Referrals: Jose Maxwell DO [Physician] - 08/14/22 8:30 am Carie Jennings MD [Primary Care Provider] - 08/14/22 8:30 am Discharge Diet: Advance as tolerated Discharge Activity: Limit activity as instructed Patient Instructions: Hydrocodone/Acetaminophen (By mouth), Lumbar Spinal Fusion (GEN), Opioid Safety Activity Restrictions/Additional Instructions: Thank you for choosing [facility] for your care! The following is a list of instructions, from your provider, to follow upon your discharge to ensure you have the optimal recovery from your recent injury or surgery. Follow-up care is a prakash part of your treatment and safety. Be sure to make and go to all appointments and call your doctor if you are having problems. If you do not already have a follow-up appointment made, call Dr. Maxwell's] office in the next 1-3 days to make follow up appointment for 1 weeks at [phone]. It is also a good idea to know your test results and keep a list of the medicines you take. Medications will be prescribed for you at your provider's discretion. These medications are to be used as instructed; if they are taken more often that prescribed they will not be refilled early and in most cases will not be refilled at all. > When a refill is needed, you should contact stephenie seaman 2-3 business days before your prescription runs out. Medications will NOT be refilled by director of recruitment and admissions providers after hours! > Many pain medications contain Tylenol (Acetaminophen). Do not consume more than 4,000 mg of Tylenol per day in total with any combination of medications. > Pain medications can cause constipation. Please use an over the counter stool softener as directed, while taking pain medications. Consult your local pharmacist with questions or recommendations on stool softeners. If constipation persists, contact our office or your primary care provider. > While under our care, you are not to receive pain medications or other controlled substances from any other provider unless our office is notified and approves. Any attempts to do so will result in refusal to prescribe any further pain medications and possible dismissal from our practice. ? Walking is essential for the healing process after surgery. We would like you to slowly advance your walking. This should be done on relatively flat clear ground (inside or out) or can be done on a treadmill. Remember this goal does not have to happen all at once, slowly increase your distance and duration. This can be broken into more more than one walk per day as tolerated. Patients who walk as directed after surgery rarely require Physical Therapy. In the unlikely event this issue arises your provider will direct hospital staff to make the appropriate arrangements. ? No lifting over 5 pounds {a gallon of milk) or bending/twisting until further notice. Each of these activities places an unnecessary amount of stress onto the body and can impede the delicate healing process. > Instead of bending at the waist, keep your back straight and bend at the knees. > Instead of twisting your torso, keep your back straight and turn your entire body with your feet. ? You may sleep in any position which makes you comfortable. Many patients find comfort sleeping in a reclining chair. It is not abnormal to have difficulty sleeping for the first several weeks following your surgery. We recommend trying Benadry! or Tylenol PM as directed to help with your sleeping difficulties. Both medications are over the counter and available without prescription. ? NO SMOKING!!! Smoking dramatically increases the probability of developing postoperative wound infections. ? Common complaints after lumbar and/or thoracic spine surgery include, but are not limited to: numbness and/or tingling in the legs, pain around the incision and surrounding tissues, muscle spasms, or stiffness of the middle to low back. Contact our office if these symptoms persist or if an acute change occurs. ? No driving for the first 3-5days, and not while taking narcotics until seen at your follow-up appointment and cleared. There are no restrictions for riding on short trips, however if you take a longer trip, arrangements should be made to make regular stops to get out of the vehicle and stretch . ? Swelling is an unfortunate event that will take place with any surgery and is the primary source of your postoperative discomfort. While walking and regular approved activities helps control inflammation, there are additional steps you can take to minimize swelling. > Place ice over the surgical site and surrounding tissue for twenty minutes, followed by applying a low/medium heat (heating pad) for an additional twenty minutes every 1-2 hours as needed for painrelief. > You may use of over the counter anti-inflammatory medications (Ibuprofen, Motrin, Aleve, Advil, etc) as directed on the package label. These types of medicines will significantly reduce the amount of discomfort you experience after surgery from swelling. It should be noted that if you have and allergy to any of these medications, or a history of ulcers or kidney disease you should consult you primary care provider prior to starting these medications. Discharge Attestations Time Spent in Discharge Care*: less than 30 min Quality Metrics Clinical Quality Measures [ No reported AMI, CVA or VTE this stay] Coding Level of Care Code Acute Chg FW DC note Diagnoses S/P spinal fusion Z98.1
== END 2022-08-08 11:30 | disposition home or self-care (01) | DRG 455 ==
LOC: MEDSURG 08-08 06:33
PROVIDERS: Admitting Provider Orthopaedic Surgery; PCP Family Medicine; Visit Provider Orthopaedic Surgery
PROC: 0SG30AJ Fusion of Lumbosacral Joint with Interbody Fusion Device, Posterior Approach, Anterior Column, Open Approach (ICD-10-PCS; principal; 2022-08-06 09:30)
PROC: 0SG30AJ Fusion of Lumbosacral Joint with Interbody Fusion Device, Posterior Approach, Anterior Column, Open Approach (ICD-10-PCS; CPT 63005; 2022-08-06 09:30)
PROC: 0SG30AJ Fusion of Lumbosacral Joint with Interbody Fusion Device, Posterior Approach, Anterior Column, Open Approach (ICD-10-PCS; CPT 22612; 2022-08-06 09:30)
DX: M48.062 Spinal stenosis, lumbar region with neurogenic claudication (principal); Z87.891 Personal history of nicotine dependence
CPT/HCPCS: 36415; 36416; 51702; 72100; 76000; 82962; 85014; 85018; 94640; 97116; 97161; C1713; C1762; J0690; J1100; J1170; J1644; J1885; J2270; J2405; J2704; J3010; J3370; J3490; J7030; J7120; P9047

== ENCOUNTER 2022-08-14 08:58 | Emergency (ER) | payer OTHER, SELFPAY ==
[2022-08-14 09:12] VITALS: BP 123/63; PULSE 106; RESP 19; TEMP 36.4; O2SAT 93; BMI 24.3
[2022-08-14 09:29] VITALS: BP 146/69; O2SAT 85
[2022-08-14 09:30] VITALS: BP 146/69; O2SAT 90
--- NOTE | 2022-08-14 09:42 | XRR_ITS ---
PROCEDURE INFORMATION: Exam: XR Abdomen Exam date and time: 08/14/2022 10:55 AM Age: 71 years old Clinical indication: Other: Hiccups; Prior surgery; Surgery date: 3-7 days post-operative; Surgery type: L2 to pelvis fusion 08/06/22; Additional info: Hiccups, flat and upright TECHNIQUE: Imaging protocol: Radiologic exam of the abdomen. Views: 2 Views. Upright and supine views. COMPARISON: OT XR lumbar spine 2-3V* [id number] 08/06/2022 11:04 AM FINDINGS: Lungs: No pneumonia or pulmonary edema. Pleural spaces: No pleural effusion or pneumothorax. Heart/Mediastinum: The cardiac silhouette is not enlarged. The mediastinal contours are normal. Gastrointestinal tract: Large amount of stool in the colon. Intraperitoneal space: No pneumoperitoneum. Bones/joints: Curvature of the thoracic spine convex to the right. Old, healed right rib fractures. Prior posterior ariana fusion from L2 to the pelvis bilaterally. Cage placement at L5-S1. XR/XR acute abdomen series [id number] IMPRESSION: 1. Large amount of stool in the colon. 2. Postoperative changes in lumbar spine.
--- NOTE | 2022-08-14 09:43 | ED_ITS ---
HPI - General Adult General: Chief complaint: General Medical Stated complaint: hiccups/Alissa sent Time Seen by Provider: 08/14/22 09:34 History of Present Illness: 71-year-old male who presents with hiccups. The patient had spine surgery 1 week ago. Patient had 5 level fusion. He has had hiccups ever since he had surgery. He was seen in follow-up today at the neurosurgery clinic and sent here for evaluation. Patient denies shortness of breath. He denies chest pain. He denies abdominal pain. Bowel movements have been normal. No fever. The incision was evaluated by the neurosurgeon and a new dressing placed. He denies any issues with the incision. Review of Systems General: Reports: 10 or more systems reviewed and unremarkable except in HPI and below Const: Reports: other (Hiccups) Musc: Reports: back pain PFSH ED PFSH: Social History Smoking and tobacco status: former smoker (2 years ) Physical Exam Const: COMMON NORMALS: no acute distress and patient oriented x3 OTHER: hiccupping HENMT: COMMON NORMALS: normocephalic, Normal nasal mucous membranes and turbinates present and moist oral mucous membranes HEAD & SCALP: normocephalic NOSE: Normal nasal mucous membranes and turbinates present Resp: COMMON NORMALS: normal respiratory effort, No use of accessory muscles and clear to auscultation bilaterally AUSCULTATION: clear to auscultation bilaterally Cardio: COMMON NORMALS: regular rhythm RHYTHM: regular rhythm OTHER: tachycardic GI: COMMON NORMALS: Normal to inspection, nondistended, normoactive bowel sounds present, Soft to palpation and non-tender PALPATION: Yes Soft to palpation Back/Pelvis: OTHER: dressing in place; no erythema Extremity: NARRATIVE EXTREMITY EXAM: no edema; non-tender Neuro: COMMON NORMALS: patient oriented x3, moves all extremities and no sensory deficits noted Skin: COMMON NORMALS: no rashes or lesions noted GENERAL SKIN EXAM: no rashes or lesions noted Course Vital Signs: Vital signs: Vital Signs Temperature 97.6 F 08/14/22 09:12 Pulse Rate 106 H 08/14/22 09:12 Respiratory Rate 19 H 08/14/22 09:12 Blood Pressure 146/69 08/14/22 09:30 Pulse Oximetry 90 08/14/22 09:30 Oxygen Delivery Me thod 08/14/22 09:12 MDM - General Adult Medical Decision Making 71-year-old male who presents with hiccups. The patient is post op 1 week from spine fusion. He has been having hiccups since his surgery. I suspect this may be anesthesia related. Patient also has not had a bowel movement for several days so constipation may be contributing as well. He has been given 5 mg of Haldol IM as well as 10 mg of Reglan IM with resolution of his hiccups. He had a chest x-ray and an abdominal series performed both of which showed no acute findings. He does have a significant amount of stool in his colon. I am going to discharge him with Reglan to take every 6 hours as needed. For the hiccups. Have instructed him to take Colace twice daily as well as MiraLAX daily. He needs to drink plenty of fluids. Return for symptoms are worsening. Lab Data Radiology Impressions Chest/Abdomen X-ray 08/14/22 09:42 IMPRESSION: 1. Large amount of stool in the colon. 2. Postoperative changes in lumbar spine. Discharge Plan Discharge Patient Disposition: Home Clinical Impression: Hiccups, Constipation Condition: Stable Prescriptions: New Reglan 10 mg tablet 10 mg PO Q6H PRN (Reason: hiccups) Qty: 30 0RF No Action pantoprazole 40 mg tablet,delayed release (DR/EC) 40 mg PO BEDTIME pravastatin 40 mg tablet 20 mg PO BEDTIME prednisolone acetate 1 % drops,suspension See Rx Instructions .ROUTE .COMPLEX Rx Instructions: 1 drp into the left eye every am except on sat and sun (DME) LSO See Rx Instructions .Route .MEDSUPPLY Qty: 1 0RF Rx Instructions: As directed hydrocodone-acetaminophen 5-325 mg tablet 1 - 2 tab PO Q4H PRN (Reason: Post op pain) 5 Days Qty: 40 0RF (DME) Intraoperative Neuromonitoring See Rx Instructions .Route .MEDSUPPLY Qty: 1 0RF Rx Instructions: As directed (DME) Bone Growth Stimulator E0748 See Rx Instructions .Route .MEDSUPPLY Qty: 1 0RF Rx Instructions: As directed diltiazem HCl 240 mg capsule,extended release 24 hr 240 mg PO QAM allopurinol [Zyloprim] 100 mg tablet 100 mg PO BID albuterol sulfate [ProAir HFA] 90 mcg/actuation Hfa Aerosol Inhaler 1 inh INHALATION QID PRN (Reason: Shortness Of Breath Or Wheezing) Stiolto Respimat 2.5-2.5 mcg/actuation Mist 2 puff INHALATION QAM Discharge Orders: Discharge ED (Routine); Ordered 08/14/22 Ordered By: Key Leach Referrals: Carie Jennings MD [Primary Care Provider] - Discharge Diet: Advance as tolerated Discharge Activity: Resume usual activity Patient Instructions: Hiccups, Constipation (ED), Opioid Safety, Pain Management Activity Restrictions/Additional Instructions: Take 1 capful of MiraLAX daily. Take Colace twice daily. You can take the Reglan every 6 hours as needed for hiccups. Make sure drinking plenty of fluids. Return if her symptoms are worsening. Follow-up in 3 to 5 days with her primary care doctor. Coding Level of Care Code ED Clinic Md Associate for Markie Fwd Exam Detailed
[2022-08-14] MEDS: haloperidol inj 5 mg/mL INJ 1 mL IM (09:45)
[2022-08-14] MEDS: metoclopramide 5 mg/mL SDV 2 mL 10 MG IM (10:53)
== END 2022-08-14 11:15 | disposition home or self-care (01) ==
PROVIDERS: Emergency Provider Emergency Medicine; PCP Family Medicine
DX: Z47.89 Encounter for other orthopedic aftercare (principal); Z98.1 Arthrodesis status
CPT/HCPCS: 74022; 96372; 99024; 99284; J1630; J2765

== ENCOUNTER → 2022-08-21 08:03 | Outpatient (BNVA) | payer OTHER, SELFPAY | PROVIDERS: PCP Family Medicine; Visit Provider Physician Assistant | DX: Z98.890 Other specified postprocedural states (principal); M47.816 Spondylosis without myelopathy or radiculopathy, lumbar region; Z98.1 Arthrodesis status | CPT/HCPCS: 72100; 99024 ==

== ENCOUNTER → 2022-09-18 08:46 | Outpatient (BNVA) | payer OTHER, SELFPAY | PROVIDERS: PCP Family Medicine; Visit Provider Physician Assistant | DX: Z47.89 Encounter for other orthopedic aftercare (principal); Z98.1 Arthrodesis status | CPT/HCPCS: 72100; 99024 ==

== ENCOUNTER → 2022-10-30 09:02 | Outpatient (BNVA) | payer OTHER, SELFPAY | PROVIDERS: PCP Family Medicine; Visit Provider Physician Assistant | DX: Z98.1 Arthrodesis status (principal); Z98.890 Other specified postprocedural states; M51.37 Other intervertebral disc degeneration, lumbosacral region; M47.816 Spondylosis without myelopathy or radiculopathy, lumbar region | CPT/HCPCS: 72100; 99024 ==

== ENCOUNTER → 2023-01-29 09:06 | Outpatient (BNVA) | payer OTHER, SELFPAY | PROVIDERS: PCP Family Medicine; Visit Provider Physician Assistant | DX: Z98.1 Arthrodesis status (principal) | CPT/HCPCS: 72100; 99213 ==